=== PATIENT | male | born 1955 | race Caucasian/White ===

== ENCOUNTER → 2018-07-01 | Outpatient (CLI) | payer BC ==
--- NOTE | 2018-07-01 23:27 | CT ---
EXAMINATION TYPE: CT abdomen pelvis w con DATE OF EXAM: 07/01/2018 COMPARISON: 07/06/2016 HISTORY: 63-year-old male LUQ pain TECHNIQUE: Contiguous axial scanning of the abdomen and pelvis following administration of 100 ml Iso mady 300 IV contrast. Delayed images through the kidneys and coronal/sagittal reconstructions perform ed. CT DLP: 1335.2 mGycm Automated exposure control for dose reduction was used. FINDINGS: Heart normal size without pericardial effusion. Lung bases clear without pleural effusion. Tiny hiatal hernia. Liver measures upper limits of normal in size at 17.8 cm. No focal liver lesion or biliary ductal dil atation. Portal venous system is patent. Gallbladder, adrenal glands, left kidney, spleen, and pancreas show no gross abnormal mobility. A 6.2 cm cyst upper pole right kidney has enlarged from 5.1 cm in 2016. Additional right mid pole cys t also shows increase in size now measuring 2.5 cm versus 2.0 cm, previously. A subcentimeter hypoden sity medial lower pole right kidney is unchanged suggesting an additional cyst. Circumaortic left renal vein is noted. No dilated small bowel, free fluid, or free air. There is some submucosal fat deposition within the t erminal ileum suggesting sequela of prior inflammation. Finding can be also be seen in the setting of obesity. Mild overall stool burden. Left hemicolonic diverticulosis, greatest in the proximal sigmoid. No paulo colonic inflammatory change. There is focal thickening of the skin and subcutaneous fat layer along the left paramedian upper abdo men. There is focal thickening of the skin up to 8 mm but no discrete fluid collection seen. Numerous scattered borderline enlarged mesenteric lymph nodes measuring up to 7 mm are unchanged from 2016 suggesting a chronic postinflammatory etiology. Bladder is urine distended. Prostate gland is enlarged measuring 5.4 cm wide. No abnormal fluid colle ction in the pelvis or pelvic lymphadenopathy seen. Bones: Mild degenerative changes at the hips. Degenerative disc disease L5-S1. No osseous destructive process. IMPRESSION: 1. MODERATE FOCAL SKIN THICKENING AND UNDERLYING INFLAMMATION WITHIN THE SUBCUTANEOUS FAT OF THE LEFT PARAMEDIAN UPPER ABDOMEN. FINDINGS SUGGEST CELLULITIS. CORRELATE WITH DIRECT VISUALIZATION. NO DISCR ETE ABSCESS. 2. LEFT HEMICOLONIC DIVERTICULOSIS WITHOUT EVIDENCE FOR ACUTE DIVERTICULITIS. NUMEROUS BORDERLINE SIZ E MESENTERIC LYMPH NODES MEASURING UP TO 7 MM ARE UNCHANGED FROM 07/06/2016 SUGGESTING A CHRONIC POST INFLAMMATORY ETIOLOGY. 3. PROSTATOMEGALY (5.4 CM WIDE).
== END | disposition home or self-care (01) ==
LOC: RADCTMAIN 15:00
PROVIDERS: ATTEND Physician Assistant
DX: N40.0 Benign prostatic hyperplasia without lower urinary tract symptoms (principal); K57.30 Diverticulosis of large intestine without perforation or abscess without bleeding
CPT/HCPCS: 74177; Q9967

== ENCOUNTER → 2019-03-13 | Outpatient (CLI) | payer BC ==
--- NOTE | 2019-03-13 20:35 | CONS ---
CONSULTATION DATE OF SERVICE: 03/13/2019 63-year-old gentleman has been evaluated in the sleep center for possible obstructive sleep apnea-hypopnea syndrome. HISTORY OF PRESENT ILLNESS/SLEEP WAKE EVALUATION: The patient has been diagnosed with obstructive sleep apnea about 12 years ago. After that was recommended to use CPAP but had difficulties with that and then he had his ear, nose, and throat surgery by Dr. Ferrell, had throat surgery and tonsillectomy and after surgery, patient continued to have his snoring and symptoms of breathing problem during the sleep. SLEEP SCHEDULE: At present his sleep schedule from 9:30 p.m. to 5:30 a.m. on working days and on weekends he has the same schedule. FALLING ASLEEP: No problem with falling asleep, although he has TV in bedroom. DURING SLEEP: He usually sleeps on the side position with his with loud snoring and witnessed episodes of stopped breathing during the sleep. DURING THE DAY/SLEEP WAKE EVALUATION: In the morning, patient wakes up tired falling asleep during the day, has problems with memory. [place] Sleepiness Scale significantly increased to 11. PAST MEDICAL HISTORY: Positive for hypertension, hyperlipidemia, BPH. Nasal fracture at the age of 11 with surgery at that moment. PAST SURGICAL HISTORY: Right shoulder surgery for rotator cough, left shoulder surgery. MEDICATIONS: Doxazosin, amlodipine and atorvastatin. SOCIAL HISTORY: Negative for smoking or using alcohol. FAMILY HISTORY: Hypertension, arthritis, headaches, cancer. REVIEW OF SYSTEMS: Multiple awakenings from sleep up to 3 times with 2 episodes of nocturia and excessive daytime sleepiness. The patient may take naps once a day. PHYSICAL EXAM: A gentleman without distress. BP 138/71, HR 79, RR 16, height 70 inches, weight 218 pounds. Body mass index 31.28, temperature 97.8, oxygen saturation at room air 96%. Oropharynx: No uvula. Wide pillars. Low position of soft palate. Mallampati 3. Asymmetric nose. Restriction of nasal breathing. Wide neck 16-1/2 inches in circumference. Neck Supple, no JVD. Thyroid is not palpable. LUNGS Clear to percussion and to auscultation. Good air exchange. No wheezing or rhonchi. HEART S1, S2 regular. No murmurs, gallops, or rubs. ABDOMEN: Obese. Soft and nontender. Bowel sounds are present. No organomegaly appreciated. EXTREMITIES: extremities very minimal up to 1+ ankle edema. ACCOUNTANT CERTIFIED PUBLIC Awake, alert, and oriented X3. Cranial nerves 2 to 7 intact. There is no fasciculation or atrophy. noted. No focal deficits observed. IMPRESSION: 1. Snoring, witnessed episodes of stopped breathing during the sleep. Low position of soft palate. Small oropharyngeal air space. Restriction of nasal breathing. Wide neck. Sleepiness. [place] Sleepiness Scale is 11. Obstructive sleep apnea- hypopnea syndrome. 2. Obesity, BMI 31.3. 3. Hypertension. 4. Hyperlipidemia. 5. Status post uvulopalatopharyngoplasty and tonsillectomy. 6. History of benign prostatic hypertrophy. 7. Status post nasal fracture and nasal surgery at the age of 11. 8. Status post right shoulder surgery for rotator cuff. 9. Status post left shoulder surgery. PLAN: 1. Home sleep apnea test for evaluation of patient's breathing during sleep. 2. CPAP/BiPAP titration if sleep study confirms obstructive sleep apnea-hypopnea syndrome. 3. Preferable position during sleep on the side. 4. No driving if patient feels any sleepiness. 5. I will see patient for follow up visit to explain results of testing and following plan. Thank you very much for referring this patient for consultation. Sincerely, Surinder Herrera MD, PhD, FAASM Diplomat of [place] [employer] [place] [employer] Physiatrist of [facility] [place] [facility]OD[facility] / [place]: [id number] /
== END ==
LOC: SLEEP 15:32
PROVIDERS: ATTEND Internal Medicine
DX: G47.33 Obstructive sleep apnea (adult) (pediatric) (principal); E66.9 Obesity, unspecified; I10 Essential (primary) hypertension; E78.5 Hyperlipidemia, unspecified; N40.0 Benign prostatic hyperplasia without lower urinary tract symptoms; Z90.89 Acquired absence of other organs; Z87.81 Personal history of (healed) traumatic fracture; Z98.890 Other specified postprocedural states; Z99.89 Dependence on other enabling machines and devices; Z79.899 Other long term (current) drug therapy
CPT/HCPCS: 99211

== ENCOUNTER → 2019-06-26 | Outpatient (CLI) | payer BC ==
--- NOTE | 2019-06-26 20:14 | PN ---
PROGRESS NOTE DATE OF SERVICE: 06/26/2019 64-year-old gentleman has been followed in Sleep Center for treatment of obstructive sleep apnea-hypopnea syndrome. Recently, patient had home sleep apnea test which showed severe obstructive sleep apnea- hypopnea syndrome with apnea-hypopnea index 60.4. The patient received auto PAP unit. Today is his first visit after he started to use CPAP therapy. The patient feels significantly better with the treatment. Sleeps well. Feels better during the day. [place] Sleepiness Scale today is only 1, which is totally normal. Previously, patient had sleepiness. I checked CPAP unit, range of the pressure 5-20, average pressure 16.2, usage is every night for more than 4 hours with average usage 7.4 hours per night. Leak is only 4 L/minutes which is perfect. Apnea-hypopnea index is 2.8, which is perfect. MEDICATIONS: Doxazosin, amlodipine, atorvastatin. PHYSICAL EXAM: Patient in no distress. BP 133/76, HR 80, RR 16, weight 220, temperature 98.3. Oropharynx: Low position of soft palate. Mallampati 3. Neck Supple, no JVD. Thyroid is not palpable. LUNGS Clear to percussion and to auscultation. Good air exchange. No wheezing or rhonchi. HEART S1, S2 regular. No murmurs, gallops, or rubs. ABDOMEN: Slightly obese. Soft and nontender. Bowel sounds are present. No organomegaly appreciated. EXTREMITIES No clubbing or cyanosis. VACUUM DRUM DRIER OPERATOR Awake, alert, and oriented X3. Cranial nerves 2 to 7 intact. There is no fasciculation or atrophy. noted. No focal deficits observed. IMPRESSION: 1. Extremely severe obstructive sleep apnea-hypopnea syndrome; apnea-hypopnea index 60.4 with oxygen saturation to 76% on full control with CPAP in automatic regimen with average pressure of 16.2 cm of water. Patient demonstrated 100% compliance with treatment benefitting from treatment. 2. Mild obesity. 3. Hypertension. 4. Hyperlipidemia. 5. Status post uvulopalatopharyngoplasty and tonsillectomy. 6. History of benign prostatic hypertrophy. 7. Status post nasal fracture. Nasal surgery at age of 11. 8. Status post right shoulder surgery for rotator cuff problems. 9. Status post left shoulder surgery. PLAN: 1. Patient will continue to use CPAP equipment every night for the whole night. 2. Watching and losing weight. 3. Sleep hygiene with regular time in bed for at least 7.5 hours. 4. I will maintain all necessary prescriptions for CPAP supplies including mask, tube, filters. Thank you very much for allowing me to participate in management of your patient. Sincerely, Surinder Herrera MD, PhD, FAASM Diplomat of [place] [employer] [place] [employer] Deputy Administrator of [facility] [place] MMOD[facility] / [place]: [id number] /
== END | disposition home or self-care (01) ==
LOC: SLEEP 15:58
PROVIDERS: ATTEND Internal Medicine
DX: G47.33 Obstructive sleep apnea (adult) (pediatric) (principal); E66.9 Obesity, unspecified; I10 Essential (primary) hypertension; E78.5 Hyperlipidemia, unspecified; Z87.81 Personal history of (healed) traumatic fracture; Z87.438 Personal history of other diseases of male genital organs; Z90.09 Acquired absence of other part of head and neck; Z99.89 Dependence on other enabling machines and devices; Z98.890 Other specified postprocedural states; Z79.899 Other long term (current) drug therapy

== ENCOUNTER → 2020-03-25 | Outpatient (CLI) | payer BC ==
--- NOTE | 2020-03-25 16:31 | CT ---
EXAMINATION TYPE: CT abdomen pelvis w con DATE OF EXAM: 03/25/2020 COMPARISON: 07/01/2018 and 07/06/2016 HISTORY: 64-year-old male LLQ pain TECHNIQUE: Contiguous axial scanning of the abdomen and pelvis following administration of 100 ml Omn ipaque 300 IV contrast. Delayed images through the kidneys and coronal/sagittal reconstructions perf ormed. CT DLP: 1444.9 mGycm Automated exposure control for dose reduction was used. FINDINGS: Heart normal size without pericardial effusion. Lung bases clear without pleural effusion. 1.1 cm lower right paraesophageal lymph node slightly larger from 8 mm probably reactive/post inflamm atory given that it was here since 2016. Tiny hiatal hernia. No focal liver lesion or biliary ductal dilatation. Portal venous system is patent. Gallbladder is collapsed. Redemonstrated cysts within the right kidney measuring up to 7.0 cm. Adrenal glands, left kidney, spleen, hilar splenule, and pancreas show no gross abnormality. Numerous scattered nonenlarged and borderline sized mesenteric lymph nodes are unchanged suggesting c hronic postinflammatory etiology. No dilated small bowel, free fluid, or free air. Circumaortic left renal vein. Moderate stool in the right side of the abdomen. Lower descending and proximal to mid sigmoid diverti culosis. There is mild pericolonic fat stranding along the lower descending colon, axial image 53 wit hout abnormal wall thickening. Prominent pericolonic vessels are favored. Circumferential bladder wall thickening. Prostate gland is enlarged at 5.5 cm wide. No abnormal fluid collection in the pelvis or enlarged pelvic lymphadenopathy. Bones: Mild degenerative change of the hips. Degenerative disc disease L5-S1. No osseous destructive process. IMPRESSION: 1. DIVERTICULOSIS ALONG THE LOWER DESCENDING AND PROXIMAL SIGMOID COLON. AT THE LOWER DESCENDING COLO N, THERE IS MILD PERICOLONIC STRANDING FAVORED TO REPRESENT PROMINENT PERICOLONIC VESSELS RATHER THAN MILD INFLAMMATION. CORRELATE FOR ANY POTENTIAL SYMPTOMS OF MILD ACUTE DIVERTICULITIS. NO ABSCESS OR FREE AIR. 2. PROSTATOMEGALY AT 5.5 CM WIDE. CIRCUMFERENTIAL BLADDER WALL THICKENING COULD REPRESENT CHRONIC ERROL DDER WALL HYPERTROPHY OR CYSTITIS. CLINICALLY CORRELATE.
== END | disposition home or self-care (01) ==
LOC: RADCTMAIN 14:05
PROVIDERS: ATTEND Family Medicine
DX: K57.30 Diverticulosis of large intestine without perforation or abscess without bleeding (principal); N40.0 Benign prostatic hyperplasia without lower urinary tract symptoms
CPT/HCPCS: 74177; Q9967

== ENCOUNTER → 2020-07-15 | Outpatient (CLI) | payer BC ==
--- NOTE | 2020-07-16 02:31 | SFUN ---
SLEEP CENTER FOLLOW UP NOTE DATE OF SERVICE: 07/15/2020 A 65-year-old gentleman who has been followed in sleep center for treatment of obstructive sleep apnea-hypopnea syndrome. The patient successfully continuing to use his CPAP equipment every night for the whole night. He does not snore with the machine. [place] Sleepiness Scale today is 0. I checked his CPAP unit. It is an automatic regimen range of the pressure 5 to 20, average pressure is 14.9. Usage is 30 out of 30 nights more than 4 hours. Average usage is 7.2 hours per night. Leak is 6 L/minutes which is normal. Apnea-hypopnea index 3.0. MEDICATIONS: [place], doxycycline. PHYSICAL EXAMINATION: GENERAL: Patient in no distress. VITAL SIGNS: BP 122/75, HR 75, RR 16 height 5 feet 9-3/4 inches, weight 215.4 pounds, body mass index 31.1, temperature 97.5, oxygen saturation at room air 97%. HEENT: PERRLA, EOMI. Oropharynx low position of soft palate. Mallampati 3. NECK: Supple, no JVD. Thyroid is not palpable. LUNGS: Clear to percussion and to auscultation. Good air exchange. No wheezing or rhonchi. HEART: S1, S2 regular. No murmurs, gallops, or rubs. ABDOMEN: Soft and nontender. Bowel sounds are present. No organomegaly appreciated. EXTREMITIES: No clubbing or cyanosis. CUSTOM MOTORCYCLE PAINTER: Awake, alert, and oriented X3. Cranial nerves 2 to 7 intact. There is no fasciculation or atrophy. noted. No focal deficits observed. IMPRESSION: 1. Obstructive sleep apnea-hypopnea syndrome in severe range. Patient demonstrated 100% compliance with treatment, benefitting from treatment, normal respiration on CPAP. 2. Hypertension. 3. Hyperlipidemia. 4. Status post UPPP. 5. History of benign prostatic hypertrophy. 6. History of nasal fracture, status post nasal surgery in childhood. 7. Status post right shoulder surgery for rotator cuff problems. 8. Status post left shoulder surgery. PLAN: 1. Patient will continue to use PAP equipment every night for the whole night. 2. Sleep hygiene with regular time in bed for at least 7-1/2 to 8 hours. 3. Precautions related to driving. No driving if feeling sleepiness. 4. I will maintain all necessary prescription for PAP supplies including mask, tube, filters. 5. Watching weight. 6. No driving if feeling sleepiness. 7. Follow-up visit in 6 months or earlier if patient has any problems. Thank you very much for allowing me to participate in management of your patient. Sincerely, Surinder Herrera MD, PhD, FAASM Diplomat of [place] [employer] Specialties [place] Board of Internal Medicine Certified [place] Reporter of [facility] [place] MMODL / [place]LIN[place]: [id number] /
== END | disposition home or self-care (01) ==
LOC: SLEEP 11:03
PROVIDERS: ATTEND Internal Medicine
DX: G47.33 Obstructive sleep apnea (adult) (pediatric) (principal); I10 Essential (primary) hypertension; E78.5 Hyperlipidemia, unspecified; Z87.81 Personal history of (healed) traumatic fracture; Z99.89 Dependence on other enabling machines and devices; Z98.890 Other specified postprocedural states; Z87.438 Personal history of other diseases of male genital organs

== ENCOUNTER → 2021-08-31 | Outpatient (CLI) | payer BC ==
--- NOTE | 2021-08-31 20:16 | SFUN ---
SLEEP CENTER FOLLOW UP NOTE DATE OF SERVICE: 08/31/2021 This 66-year-old gentleman has been followed in Sleep Center for treatment of obstructive sleep apnea-hypopnea syndrome. The patient continues to use his CPAP equipment every night. He does not snore with the machine. [place] Sleepiness Scale today is zero. I checked his CPAP unit. Pressure is in the range 5 to 20 with average pressure 15 cm of water. Usage is 100% of nights and 29/30 nights for more than 4 hours, average 6.8 hours per night, which is great compliance. Leak is only 4 L/minute. Apnea-hypopnea index is 2.3, which is normal. MEDICATIONS: 1. Doxazosin 8 mg once a day. 2. Amlodipine 10 mg once a day. 3. Atorvastatin 40 mg once a day. PHYSICAL EXAMINATION: GENERAL: Pleasant patient in no distress. VITAL SIGNS: BP 135/63, HR 77, RR 15, height 5 feet 9-1/2 inches, weight 215.8 pounds, which is about the same as during last visit. BMI 31.2, temperature 97.7, oxygen saturation at room air 97%. HEENT: PERRLA, EOMI, evaluation of oropharynx showed tongue protrudes midline. Low position of soft palate; Mallampati III. NECK: Supple, no JVD. Thyroid is not palpable. LUNGS: Clear to percussion and to auscultation. Good air exchange. No wheezing or rhonchi. HEART: S1, S2 regular. No murmurs, gallops, or rubs. ABDOMEN: Soft and nontender. Bowel sounds are present. No organomegaly appreciated. EXTREMITIES: No clubbing or cyanosis. INFANT BABYSITTER: Awake, alert, and oriented X3. Cranial nerves 2 to 7 intact. There is no fasciculation or atrophy. noted. No focal deficits observed. IMPRESSION: 1. Obstructive sleep apnea-hypopnea syndrome in severe range. The patient demonstrated great compliance with treatment. Apnea-hypopnea index on treatment is 2.3, which is totally normal. 2. Hypertension. 3. Hyperlipidemia. 4. History of benign prostatic hypertrophy. 5. Status post UPPP. 6. History of nasal fracture, status post nasal surgery in childhood. 7. Status post right shoulder surgery for rotator cuff problems. 8. Status post left shoulder surgery. PLAN: 1. Prescription for supplies was written and faxed to [facility]. I did not see patient for more than one year, and prescription . That is why it had to be written today. 2. Patient will continue to use PAP equipment every night for the whole night. 3. Sleep hygiene with regular time in bed for at least 7-1/2 to 8 hours. 4. Precautions related to driving. No driving if feeling sleepiness. 5. I will maintain all necessary prescription for PAP supplies including mask, tube, filters. 6. Watching weight. 7. Follow-up visit in 6 months or earlier if patient has any problems. Thank you very much for allowing me to participate in the management of your patient. Sincerely, Surinder Herrera MD, PhD, FAASM Diplomat of [place] [employer] Specialties Sleep Medicine Board of [place] Board of Internal Medicine Upholsterer Apprentice of [facility] [place] [facility] / [place]: [id number] /
== END ==
LOC: SLEEP 10:08
PROVIDERS: ATTEND Internal Medicine
DX: G47.33 Obstructive sleep apnea (adult) (pediatric) (principal); E78.5 Hyperlipidemia, unspecified; I10 Essential (primary) hypertension; Z98.890 Other specified postprocedural states; Z87.438 Personal history of other diseases of male genital organs; Z87.81 Personal history of (healed) traumatic fracture; Z99.89 Dependence on other enabling machines and devices; Z79.899 Other long term (current) drug therapy

== ENCOUNTER → 2022-08-30 | Outpatient (CLI) | payer BC ==
--- NOTE | 2022-08-30 11:11 | P.PN ---
Subjective DATE: 08/30/2022 FOLLOW UP VISIT. Patient with obstructive sleep apnea hypopnea syndrome return to sleep center for follow-up visit. Information from previous visit have been reviewed. Patient is using PAP equipment every night for the whole night, getting PAP supplies in time. The patient does not have significant problems with the mask, PAP unit and humidification. [place] sleepiness scale is 0, which is perfect. I checked information from PAP unit. PAP unit pressure 5-20, average 14.7 cm H2O. Usage is 100 % for more then 4 hours, average 6.8 hours per night. Leak is 0 l/m. Apnea Hypopnea Index is 1.9, which is normal. MEDICATIONS:1. Doxazosin 8 mg once a day 2. Amlodipine 10 mg once a day 3. Atorvastatin 40 mg once a day During physical exam: GENERAL: A pleasant patient without any distress. VITAL SIGNS: BP 146/76, HR 62, RR 16, weight 218.6, temperature 97.7, oxygen saturation at room air 99 % . HEENT: PERRLA, EOMI.low position of soft palate, Mallapati 3. NECK: Supple. No JVD. LUNGS: Clear to percussion and to auscultation. Good air exchange. No wheezing or rhonchi. HEART: S1, S2 regular. ABDOMEN: Soft and nontender. Slightly obese EXTREMITIES: No clubbing or cyanosis. ECONOMIC DEVELOPMENT SPECIALIST: Awake, alert, and oriented x3. No focal deficit. Impressions: 1. Obstructive sleep apnea-hypopnea syndrome. Patient demonstrated great compliance with treatment, benefiting from treatment. 2. Hypertension. 3. Hyperlipidemia. 4. History of BPH. 5. Mild obesity by body mass index. 6. Status post UPPP. 7. History of nasal fracture, status post nasal surgery in childhood. 8. Status post right shoulder surgery for rotator cuff problems. 9. Status post left shoulder surgery. Plan: 1. Continue using PAP equipment every night for the whole night. 2. To change air filter at least 1-2 times per month. 3. PAP unit should stay lower then position of the head. 4. Advised patient to remove all remaining water from humidifier canister daily and make it dry after each usage. Refill canister with fresh distilled water before each usage. 5. Sleep hygiene with regular time in bed for at least 8 hours. 6. Precautions related to driving. No driving if feel any sleepiness. 7. I will maintain prescription for PAP supplies including mask, tube, filters. 8. Follow up visit in 6 months or earlier if patient has any problems. 9. Watching weight. Thank you very much for allowing me to participate in the management of your pa tient. Surinder Herrera MD, PhD, FAASM. Diplomat of [place] [employer] Sleep Medicine, Sleep Medicine Board by [place] Board [employer] Medicine Riverboat Master of [facility] [place]
== END ==
LOC: SLEEP 09:53
PROVIDERS: ATTEND Internal Medicine
DX: G47.33 Obstructive sleep apnea (adult) (pediatric) (principal); Z99.89 Dependence on other enabling machines and devices; I10 Essential (primary) hypertension; E78.5 Hyperlipidemia, unspecified; Z87.448 Personal history of other diseases of urinary system; E66.8 Other obesity; Z98.890 Other specified postprocedural states
CPT/HCPCS: 99212

== ENCOUNTER → 2023-08-30 | Outpatient (CLI) | payer BC ==
--- NOTE | 2023-08-30 10:56 | P.PN ---
Subjective DATE: 08/30/2023 FOLLOW UP VISIT. Patient with obstructive sleep apnea hypopnea syndrome return to sleep center for follow-up visit. Information from previous visit have been reviewed. Patient is using PAP equipment every night for the whole night, getting PAP supplies in time. The patient does not have significant problems with the mask, PAP unit and humidification. [place] sleepiness scale is 0. I checked information from PAP unit. PAP unit pressure 5-20, average 13.9 cm H2O. Usage is 100 % for more then 4 hours, average 6.75 hours per night. Leak is 1.7 l/m, which is in acceptable range. Apnea Hypopnea Index is 1.7, which is normal. MEDICATIONS:1. Amlodipine/atorvastatin 10-40 milligrams once a day 2. Doxazosin 8 mg once a day During physical exam: GENERAL: A pleasant patient without any distress. VITAL SIGNS: BP 152/73, HR 66, RR 16 , weight 219.2, temperature 98.0, oxygen saturation at room air 98 % . HEENT: PERRLA, EOMI.low position of soft palate, Mallapati 3 . NECK: Supple. No JVD. LUNGS: Clear to percussion and to auscultation. Good air exchange. No wheezing or rhonchi. HEART: S1, S2 regular. Soft systolic murmur on aorta. ABDOMEN: Soft and nontender.[] EXTREMITIES: No clubbing or cyanosis. TUBE MOUNTER: Awake, alert, and oriented x3. No focal deficit. Impressions: 1. Obstructive sleep apnea-hypopnea syndrome. Patient demonstrated great compliance with treatment, benefiting from treatment. 2. Hypertension. 3. Hyperlipidemia. 4. History of BPH. 5. Status post UPPP. 6. Status post nasal surgery for fracture in childhood. 7. Status post left and right shoulder surgery. Plan: 1. Continue using PAP equipment every night for the whole night. 2. To change air filter at least 1-2 times per month. 3. PAP unit should stay lower then position of the head. 4. Advised patient to remove all remaining water from humidifier canister daily and make it dry after each usage. Refill canister with fresh distilled water before each usage. 5. Sleep hygiene with regular time in bed for at least 8 hours. 6. Precautions related to driving. No driving if feel any sleepiness. 7. I will maintain prescription for PAP supplies including mask, tube, filters. 8. Follow up visit in 6 months or earlier if patient has any problems. 9. Watching weight. Thank you very much for allowing me to participate in the management of your patient. Surinder Herrera MD, PhD, FAASM. Diplomat of [place] Board of Sleep Medicine, Sleep Medicine Board by [place] Board of Internal Medicine It Network Engineer of [facility] [place]
== END ==
LOC: 3 N SLEEP 10:16
PROVIDERS: ATTEND Internal Medicine
DX: G47.33 Obstructive sleep apnea (adult) (pediatric) (principal); I10 Essential (primary) hypertension; E78.5 Hyperlipidemia, unspecified; N40.0 Benign prostatic hyperplasia without lower urinary tract symptoms; Z98.890 Other specified postprocedural states; Z99.89 Dependence on other enabling machines and devices; Z79.899 Other long term (current) drug therapy
CPT/HCPCS: 99212

== ENCOUNTER → 2024-08-28 | Outpatient (CLI) | payer BC ==
[2024-08-28 10:46] VITALS: BP 153/84; PULSE 68; RESP 16; TEMP 97.8
--- NOTE | 2024-08-28 10:59 | P.PROGSL ---
Subjective DATE: 08/28/2024 FOLLOW UP VISIT. Patient with obstructive sleep apnea hypopnea syndrome return to sleep center for follow-up visit. Information from previous visit have been reviewed. Patient is using PAP equipment every night for the whole night, getting PAP supplies in time. The patient does not have significant problems with the mask, PAP unit and humidification. [place] sleepiness scale is 2, which is perfect. I checked information from PAP unit. PAP unit pressure 5-20, average 15.9 cm H2O. Usage is 100% for more then 4 hours, average 6.9 hours per night. Leak is 5 l/m, which is in normal range. Apnea Hypopnea Index is 2.4, which is normal. MEDICATIONS have been reviewed, please see below. During physical exam: GENERAL: A pleasant patient without any distress. VITAL SIGNS: Please see below, weight is 218 lbs. HEENT: PERRLA, EOMI.low position of soft palate, Mallapati 3. NECK: Supple. No JVD. LUNGS: Clear to percussion and to auscultation. Good air exchange. No wheezing or rhonchi. HEART: S1, S2 regular. ABDOMEN: Soft and nontender. Slightly obese EXTREMITIES: No clubbing or cyanosis. 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 No focal deficit. Impressions: 1. Obstructive sleep apnea-hypopnea syndrome. Patient demonstrated great compliance with treatment, benefiting from treatment. 2. Mild obesity, BMI 32.1. 3. Hypertension. 4. Hyperlipidemia. 5. History of BPH. 6. Status post UPPP. 7. Status post left and right shoulder surgery. 8. Status post nasal surgery for fracture in childhood. Plan: 1. Continue using PAP equipment every night for the whole night. 2. Sleep hygiene with regular time in bed for at least 7.5-8 hours 3. PAP unit should stay lower then position of the head. 4. Advised patient to remove all remaining water from humidifier canister daily and make it dry after each usage. Refill canister with fresh distilled water before each usage. 5. Watching and losing weight. 6. Precautions related to driving. No driving if feel any sleepiness. 7. I will maintain prescription for PAP supplies including mask, tube, filters. 8. Follow up visit in 8 months or earlier if patient has any problems. Thank you very much for allowing me to participate in the management of your patient. Surinder Herrera MD, PhD, FAASM. Diplomat of [place] [employer], Sleep Medicine Board by [employer] [facility] [place] Objective - Vital Signs Vital Signs: Vital Signs Temp 97.8 F 08/28/24 10:45 Pulse 68 08/28/24 10:45 Resp 16 08/28/24 10:45 BP 153/84 08/28/24 10:45 Pulse Ox 98 08/28/24 10:45 FiO2 Intake & Output 08/27/24 08/28/24 08/28/24 18:59 06:59 18:59 Weight 98.883 kg Home Medications: Home Medications Medication Instructions Recorded Confirmed Type amLODIPine/ATORVASTATIN [[place]ad[place] 5 1 tab PO HS 07/20/14 08/28/24 History mg-20 mg Tablet] Esomeprazole Magnesium [NexIUM] 40 mg PO DAILY PRN 09/06/15 09/13/15 History HYDROcodone/APAP 7.5-325MG [[place] 1 - 2 each PO Q6HR PRN #40 tab 09/13/15 Rx 7.5] Doxazosin Mesylate 8 mg PO DAILY 08/28/24 08/28/24 History Fluticasone Propion/Salmeterol 50 mcg INHALATION DAILY 08/28/24 08/28/24 History [Advair 250-50 Diskus]
== END ==
LOC: 3 N SLEEP 10:25
PROVIDERS: ATTEND Internal Medicine
DX: G47.33 Obstructive sleep apnea (adult) (pediatric) (principal); E66.9 Obesity, unspecified; I10 Essential (primary) hypertension; E78.5 Hyperlipidemia, unspecified; N40.0 Benign prostatic hyperplasia without lower urinary tract symptoms; Z98.890 Other specified postprocedural states; Z90.89 Acquired absence of other organs; Z87.828 Personal history of other (healed) physical injury and trauma; Z99.89 Dependence on other enabling machines and devices; Z68.32 Body mass index [BMI] 32.0-32.9, adult; Z79.899 Other long term (current) drug therapy
CPT/HCPCS: 99212